=== PATIENT | female | born 1950 | race Caucasian/White ===

== ENCOUNTER 2017-02-02 17:32 | Emergency (ER) | payer BC, OTHER ==
[~2017-02-02] VITALS: Ht 167.6 cm; Wt 95.6 kg
[~2017-02-02 17:32] MED LIST: ACET-1311 PO; BUSP30TA2 PO; FLUO40CA8 PO; KRIL1CAP7 PO; LINA72CA PO; LISI-461 PO; NAPR1TAB9 PO; SIMV20TA2 PO; TOPI25TA10 PO; ZNTT/150 PO
[2017-02-02 17:42] VITALS: TEMP 37.2; Ht 167.6 cm; Wt 95.6 kg
[2017-02-02] MEDS ORDERED: SODIUM CHLORIDE 0.9% 500ML 500 ML IV STA (19:05)
[2017-02-02] MEDS ORDERED: ONDANSETRON INJ 2 MG/ML 2 ML VIAL IV STA (19:05)
[2017-02-02] MEDS ORDERED: OPTIRAY 320 IV PRN (19:15)
[2017-02-02 19:34] LABS: BASO % 0.2 %; BASO ABS # 0.02 K/uL (0-0.2); COMPLETE YES; EOS % 0.6 %; HEMATOCRIT 40.1 % (37-47); IG% 0.2 %; LYMPH % 18.5 %; LYMPH ABS # 1.98 K/uL (1.2-3.4); MEAN CELL VOLUME 89.1 fL (80-100); MEAN CORPUSCULAR HGB CONC 33.7 g/dl (32-36); MEAN PLATELET VOLUME 9.6 fL (7.4-10.4); MONO % 10.8 %; NEUT % 69.7 %; PLATELET COUNT 257 K/uL (130-400); WHITE BLOOD COUNT 10.69 K/uL (4.8-10.8)
[2017-02-02 19:39] LABS: MANUAL MICROSCOPIC REQUIRED? NO; REVIEW REQ? NO; URINE APPEARANCE CLEAR (CLEAR); URINE BILIRUBIN NEG (NEG); URINE COLOR DK YELLOW; URINE NITRITE NEG (NEG); URINE PH 5.5 (4.5-7.5); URINE SPECIFIC GRAVITY 1.024 (1.000-1.030); UROBILINOGEN NEG (NEG)
[2017-02-02 19:57] LABS: BUN/CREATININE RATIO 14.4 (10-20); CALCIUM 8.8 mg/dl (8.5-10.1); CREATININE 1.1 mg/dl (0.60-1.20); POTASSIUM 3.4 mmol/L (3.5-5.1)
--- NOTE | 2017-02-02 21:58 | DIAGNOSTIC IMAGING REPORT ---
ABD/PELVIS IV AND ORAL CONT CT DOSE: 781.71 mGy.cm HISTORY: Lower abdominal pain eval for diver tic TECHNIQUE: Multiaxial CT images of the abdomen and pelvis were performed following the use of intravenous and oral contrast. A dose lowering technique was utilized adhering to the principles of ALARA. COMPARISON STUDY: None. FINDINGS: Mild bibasilar dependent atelectasis. Small hiatal hernia. Liver spleen and pancreas are unremarkable. Gallbladder slightly contracted. Bowel pattern is nonobstructive. There are findings of wall thickening of the proximal to mid sigmoid colon with moderate pericolonic infiltrative change. This appearance consistent with that of acute diverticulitis. There is no evidence for abscess collection or obstruction. Small bowel pattern is unremarkable. IMPRESSION: 1. Acute proximal to mid sigmoid diverticulitis. 2. Moderate wall thickening, as well as pericolonic infiltrative change. 3. No evidence for abscess collection or obstruction. The above report was generated using voice recognition software. It may contain grammatical, syntax or spelling errors. Electronically signed by: Marky Le M.D. 02/02/2017 9:56 PM Dictated Date/Time: 02/02/2017 9:53 PM
[2017-02-02] MEDS ORDERED: CIPROFLOXACIN 500 MG TAB PO STA (23:03)
[2017-02-02] MEDS ORDERED: METRONIDAZOLE 250 MG TAB PO STA (23:03)
[2017-02-02] MEDS ORDERED: METR-163 PO (23:09)
[2017-02-02] MEDS ORDERED: CIPR-255 PO (23:09)
[2017-02-02 23:42] VITALS: BP 115/63; PULSE 68; O2SAT 98
--- NOTE | 2017-02-03 01:34 | EMERGENCY ROOM VISIT NOTE ---
History Report prepared by Maikol: Sharlene Thomas Under the Supervision of: Dr. Venkata Han M.D. First contact with patient: 18:59 Chief Complaint: ABDOMINAL PAIN Stated Complaint: LOWER ABD PAIN,IRRITABLE BOWEL,FEVER, Nursing Triage Summary: Abd pain, left sided. Lack of appetite. Took Tylenol approx one hour ago. Recent diagnosis of IBS per pt. History of Present Illness The patient is a 66 year old female who presents to the Emergency Room with complaints of persistent LLQ abdominal pain for the past 3 days. The patient has had intermittent abdominal pain for 1 year before she was diagnosed with IBS several weeks ago. She was started on Linzess. She had a colonoscopy 2 weeks ago which found diverticulosis. She also had a polyp removed and irregular cells requiring recheck in 6 months. Three days ago, she started having pain again. The pain is in her lower abdomen and worst in the LLQ. She states that it feels like her bowels are in spasm. The pain does feel like her IBS at times. She took 2 Tylenol prior to coming to the ED. She had a fever of 101 and chills. She denies any diarrhea, vomiting, or urinary symptoms. She has had a low appetite. She has been drinking less water. She has a history of arthritis and is scheduled for a knee replacement. Source of History: patient Onset: 3 days Position: abdomen (LLQ) Quality: other (spasm) Timing: other (persistent) Associated Symptoms: + fevers, + chills, No vomiting, No diarrhea, No urinary symptoms Note: Pt reports decreased appetite. Review of Systems See HPI for pertinent positives & negatives. A total of 10 systems reviewed and were otherwise negative. Past Medical & Surgical Medical Problems: (1) IBS (irritable bowel syndrome) Family History No pertinent family history stated. Social History Smoking Status: Former Smoker Marital Status: Occupation Status: retired Current/Historical Medications Scheduled Buspirone Hcl (Buspirone Hcl), 1 TAB PO BID Ciprofloxacin Hcl (Cipro), 500 MG PO BID Fluoxetine (Prozac), 60 MG PO QAM Krill Oil (Krill Oil [place]-3), 1 CAP PO QPM Linaclotide (Linzess), 1 CAP PO QAM Lisinopril (Zestril), 10 MG PO QAM Metronidazole (Flagyl), 500 MG PO TID Simvastatin (Zocor), 20 MG PO QPM Topiramate (Topamax), 25 MG PO HS Scheduled PRN Acetaminophen (Tylenol), 650 MG PO Q8 PRN for Pain Naproxen (Aleve), 440 MG PO DAILY PRN for Pain Ranitidine (Zantac), 150 MG PO BID PRN for Indigestion Allergies Coded Allergies: No Known Allergies (Unverified , 01/23/17) Physical Exam Vital Signs Date Time Temp Pulse Resp B/P (MAP) Pulse Ox O2 Delivery O2 Flow Rate FiO2 02/02/17 23:42 68 18 115/63 98 02/02/17 22:44 64 18 108/54 96 Room Air 02/02/17 21:20 68 18 139/64 94 Room Air 02/02/17 19:28 73 19 133/60 94 Room Air 02/02/17 17:42 37.2 94 18 121/69 95 Room Air Physical Exam Constitutional: Vital signs reviewed. Eyes: Pupils are equal round reactive to light. Conjunctiva are noninjected. ENT: Pharynx is clear without erythema or exudate. Mucous membranes are moist. Neck supple without meningeal signs. Respiratory: Clear to auscultation bilaterally. Breath sounds are equal bilaterally. Cardiovascular: Regular rate and rhythm. No rubs or gallops. GI: Soft, nondistended with LLQ and suprapubic tenderness to palpation. No guarding. Bowel sounds are present. Musculoskeletal: No peripheral edema. No CVA tenderness. Integumentary: No cyanosis. Neurological: The patient is awake and alert. No focal deficits. Psychiatric: Normal affect. Medical Decision & Procedures ER Provider Diagnostic Interpretation: Radiology results as stated below per my review and the radiologist's interpretation: ABD/PELVIS IV AND ORAL CONT CT DOSE: 781.71 mGy.cm HISTORY: Lower abdominal pain eval for diver tic TECHNIQUE: Multiaxial CT images of the abdomen and pelvis were performed following the use of intravenous and oral contrast. A dose lowering technique was utilized adhering to the principles of ALARA. COMPARISON STUDY: None. FINDINGS: Mild bibasilar dependent atelectasis. Small hiatal hernia. Liver spleen and pancreas are unremarkable. Gallbladder slightly contracted. Bowel pattern is nonobstructive. There are findings of wall thickening of the proximal to mid sigmoid colon with moderate pericolonic infiltrative change. This appearance consistent with that of acute diverticulitis. There is no evidence for abscess collection or obstruction. Small bowel pattern is unremarkable. IMPRESSION: 1. Acute proximal to mid sigmoid diverticulitis. 2. Moderate wall thickening, as well as pericolonic infiltrative change. 3. No evidence for abscess collection or obstruction. The above report was generated using voice recognition software. It may contain grammatical, syntax or spelling errors. Electronically signed by: Marky Le M.D. 02/02/2017 9:56 PM Dictated Date/Time: 02/02/2017 9:53 PM Laboratory Results 02/02/17 19:16 Red Blood Count 4.50, Mean Corpuscular Volume 89.1, Mean Corpuscular Hemoglobin 30.0, Mean Corpuscular Hemoglobin Concent 33.7, Mean Platelet Volume 9.6, Neutrophils (%) (Auto) 69.7, Lymphocytes (%) (Auto) 18.5, Monocytes (%) (Auto) 10.8, Eosinophils (%) (Auto) 0.6, Basophils (%) (Auto) 0.2, Neutrophils # (Auto ) 7.46, Lymphocytes # (Auto) 1.98, Monocytes # (Auto) 1.15, Eosinophils # (Auto ) 0.06, Basophils # (Auto) 0.02 02/02/17 19:16 Test 02/02/17 19:15 02/02/17 19:16 Urine Color DK YELLOW Urine Appearance CLEAR (CLEAR) Urine pH 5.5 (4.5-7.5) Urine Specific [place] 1.024 (1.000-1.030) Urine Protein TRACE (NEG) Urine Glucose (UA) NEG (NEG) Urine Ketones TRACE (NEG) Urine Occult Blood NEG (NEG) Urine Nitrite NEG (NEG) Urine Bilirubin NEG (NEG) Urine Urobilinogen NEG (NEG) Urine Leukocyte Esterase NEG (NEG) Urine WBC (Auto) 1-5 /hpf (0-5) Urine RBC (Auto) 0-4 /hpf (0-4) Urine Hyaline Casts (Auto) 1-5 /lpf (0-5) Urine Epithelial Cells (Auto) 10-20 /lpf (0-5) Urine Bacteria (Auto) NEG (NEG) White Blood Count 10.69 K/uL (4.8-10.8) Red Blood Count 4.50 M/uL (4.2-5.4) Hemoglobin 13.5 g/dL (12.0-16.0) Hematocrit 40.1 % (37-47) Mean Corpuscular Volume 89.1 fL (80-100) Mean Corpuscular Hemoglobin 30.0 pg (25-34) Mean Corpuscular Hemoglobin Concent 33.7 g/dl (32-36) Platelet Count 257 K/uL (130-400) Mean Platelet Volume 9.6 fL (7.4-10.4) Neutrophils (%) (Auto) 69.7 % Lymphocytes (%) (Auto) 18.5 % Monocytes (%) (Auto) 10.8 % Eosinophils (%) (Auto) 0.6 % Basophils (%) (Auto) 0.2 % Neutrophils # (Auto) 7.46 K/uL (1.4-6.5) Lymphocytes # (Auto) 1.98 K/uL (1.2-3.4) Monocytes # (Auto) 1.15 K/uL (0.11-0.59) Eosinophils # (Auto) 0.06 K/uL (0-0.5) Basophils # (Auto) 0.02 K/uL (0-0.2) RDW Standard Deviation 42.0 fL (36.4-46.3) RDW Coefficient of Variation 12.9 % (11.5-14.5) Immature Granulocyte % (Auto) 0.2 % Immature Granulocyte # (Auto) 0.02 K/uL (0.00-0.02) Anion Gap 9.0 mmol/L (3-11) Est Creatinine Clear Calc Drug Dose 58.6 ml/min Estimated GFR () 60.6 Estimated GFR (Non- 52.3 BUN/Creatinine Ratio 14.4 (10-20) Calcium Level 8.8 mg/dl (8.5-10.1) Total Bilirubin 0.8 mg/dl (0.2-1) Direct Bilirubin 0.2 mg/dl (0-0.2) Aspartate Amino Transf (AST/SGOT) 17 U/L (15-37) Alanine Aminotransferase (ALT/SGPT) 33 U/L (12-78) Alkaline Phosphatase 65 U/L (45-117) Total Protein 7.1 gm/dl (6.4-8.2) Albumin 3.5 gm/dl (3.4-5.0) Lipase 117 U/L (73-393) Laboratory results as reviewed by me. Medications Administered Medications (Trade) Dose Ordered Sig/Darwin Route Start Time Stop Time Status Last Admin Dose Admin Ondansetron HCl (Zofran Inj) 4 mg NOW STAT IV 02/02/17 19:05 02/02/17 19:09 DC 02/02/17 19:26 4 MG Sodium Chloride 500 ml @ 999 mls/hr Q31M STAT IV 02/02/17 19:05 02/02/17 19:35 DC 02/02/17 19:05 999 MLS/HR Metronidazole (Flagyl Tab) 500 mg NOW STAT PO 02/02/17 23:03 02/02/17 23:08 DC 02/02/17 23:03 500 MG Ciprofloxacin (Cipro Tab) 500 mg NOW STAT PO 02/02/17 23:03 02/02/17 23:08 DC 02/02/17 23:03 500 MG ED Course 1902: The patient was evaluated in room C10. A complete history and physical exam was performed. 1904: NSS 500 ml @ 999 mls/hr IV, Zofran Inj 4 mg IV. 2005: I reevaluated the patient. I discussed the test results with her. She is still drinking contrast. 2302: Ciprofloxacin 500 mg PO, Metronidazole 500 mg PO. 2303: Upon reevaluation, the patient appeared to have improvement of her symptoms. I discussed tonight's findings with her. She verbalized agreement of the treatment plan. She was discharged home. Medical Decision This is a 66-year-old female who presents with lower abdominal pain. Differential diagnosis includes diverticulitis, perforation, abscess, IBS, UTI. I did perform a limited focused review of portions of the patient's old chart on the electronic medical record. The patient has had no recent pertinent visits to this hospital. I did evaluate the patient as noted above. IV access was established. I did treat the patient with Zofran IV and normal saline IV. Urinalysis is unremarkable. I did order and review the patient's blood work as noted in the electronic medical record. I did order a CT of the abdomen and pelvis. I did review the images myself as well as the radiology report as described above. She does have diverticulitis without abscess or perforation. I did discuss the test results with the patient. She was given Cipro and Flagyl and given precautions regarding this medication. She was discharged in good condition and advised to follow up with her doctor. Medication Reconcilliation Current Medication List: was personally reviewed by me Blood Pressure Screening Patient's blood pressure: Normal blood pressure Blood pressure disposition: Did not require urgent referral Impression Primary Impression: Acute diverticulitis Scribe Attestation The scribe's documentation has been prepared under my direct and personally reviewed by me in its entirety. I confirm that the note above accurately reflects all work, treatment, procedures, and medical decision making performed by me. Departure Information Dispostion Home / Self-Care Prescriptions Metronidazole (Flagyl) 500 Mg Tab 500 MG PO TID for 10 Days, #30 TAB Prov: Venkata Han M.D. 02/02/17 Ciprofloxacin Hcl (CIPRO) 500 Mg Tab 500 MG PO BID, #20 TAB Prov: Venkata Han M.D. 02/02/17 Referrals Dalton ErnstD.OJil (PCP) Forms HOME CARE DOCUMENTATION FORM, IMPORTANT VISIT INFORMATION Patient Instructions Diverticulitis Yonny, My [facility] Additional Instructions You have been examined and treated today on an emergency basis only. This is not a substitute for, or an effort to provide, complete comprehensive medical care. It is impossible to recognize and treat all injuries or illnesses in a single emergency department visit. It is therefore important that you follow up closely with your physician. Call as soon as possible for an appointment. Return for worsening symptoms or if you develop fever, vomiting, rectal bleeding or any other concerning symptoms.
== END 2017-02-02 23:43 | disposition home or self-care (01) ==
LOC: C.EDB 17:33 → C.EDC 23:43
DX: K57.92 Diverticulitis of intestine, part unspecified, without perforation or abscess without bleeding (principal); K58.9 Irritable bowel syndrome, unspecified; Z87.891 Personal history of nicotine dependence; Z79.899 Other long term (current) drug therapy

== ENCOUNTER 2017-02-21 06:31 | Inpatient (IN) | payer BC, OTHER ==
[2017-01-23 15:00] VITALS: BMI 34.0
--- NOTE | 2017-01-23 15:39 | PAT Medication Instructions ---
Service Date Jan 23, 2017. Current Home Medication List Acetaminophen (Tylenol), 650 MG PO Q8 PRN for Pain Buspirone Hcl (Buspirone Hcl), 1 TAB PO BID Fluoxetine (Prozac), 60 MG PO QAM Krill Oil (Krill Oil [place]-3), 1 CAP PO QPM Linaclotide (Linzess), 1 CAP PO QAM Lisinopril (Zestril), 10 MG PO QAM Naproxen (Aleve), 440 MG PO DAILY PRN for Pain Ranitidine (Zantac), 150 MG PO BID PRN for Indigestion Simvastatin (Zocor), 20 MG PO QPM Topiramate (Topamax), 25 MG PO HS Medication Instructions For Your Scheduled Surgery Follow instructions per surgeon-: Naproxen (Aleve), 440 MG PO DAILY PRN for Pain - Hold the following medications 2 weeks prior to surgery: Krill Oil (Krill Oil [place]-3), 1 CAP PO QPM - Hold the following medications the morning of surgery: Linaclotide (Linzess), 1 CAP PO QAM Lisinopril (Zestril), 10 MG PO QAM - Take the following medications the morning of surgery with a sip of water: Fluoxetine (Prozac), 60 MG PO QAM Buspirone Hcl (Buspirone Hcl), 1 TAB PO BID Ranitidine (Zantac), 150 MG PO BID PRN for Indigestion (if needed) Acetaminophen (Tylenol), 650 MG PO Q8 PRN for Pain (if needed up to 4 hours prior to surgery) - Take the following medications as scheduled the night before surgery: Topiramate (Topamax), 25 MG PO HS Simvastatin (Zocor), 20 MG PO QPM Buspirone Hcl (Buspirone Hcl), 1 TAB PO BID Ranitidine (Zantac), 150 MG PO BID PRN for Indigestion Acetaminophen (Tylenol), 650 MG PO Q8 PRN for Pain If you have any questions please call us at [phone] or [phone] or [phone]
--- NOTE | 2017-01-23 16:22 | DIAGNOSTIC IMAGING REPORT ---
CHEST 2 VIEWS ROUTINE CLINICAL HISTORY: Preoperative evaluation. COMPARISON STUDY: No previous studies for comparison. FINDINGS: Lung volumes are normal. No pneumothorax or pleural effusion is present. Pulmonary vascularity is normal. Cardiomediastinal silhouette is normal. Lungs are clear. IMPRESSION: No acute cardiopulmonary findings. Electronically signed by: Jona Gabriel M.D. 01/23/2017 4:21 PM Dictated Date/Time: 01/23/2017 4:20 PM
[2017-01-23 16:27] LABS: BASO % 0.8 %; BASO ABS # 0.04 K/uL (0-0.2); COMPLETE YES; EOS % 2.9 %; HEMATOCRIT 40.8 % (37-47); LYMPH % 30.2 %; LYMPH ABS # 1.57 K/uL (1.2-3.4); MEAN CELL VOLUME 87.9 fL (80-100); MEAN CORPUSCULAR HGB CONC 34.1 g/dl (32-36); MEAN PLATELET VOLUME 9.8 fL (7.4-10.4); MONO % 7.9 %; NEUT % 58.2 %; PLATELET COUNT 256 K/uL (130-400); RED BLOOD COUNT 4.64 M/uL (4.2-5.4)
[2017-01-23 16:36] LABS: URINE APPEARANCE CLEAR (CLEAR); URINE BILIRUBIN NEG (NEG); URINE COLOR YELLOW; URINE NITRITE NEG (NEG); URINE PH 6.5 (4.5-7.5); URINE SPECIFIC GRAVITY 1.022 (1.000-1.030); UROBILINOGEN NEG (NEG); ZZUR CULT IF INDIC CLEAN CATCH NO
[2017-01-23 16:40] LABS: MANUAL MICROSCOPIC REQUIRED? NO; REVIEW REQ? NO
[2017-01-23 16:42] LABS: PROTHROMBIN TIME (PATIENT) 10.3 SECONDS (9.0-12.0)
[2017-01-23 16:47] LABS: CALCIUM 8.9 mg/dl (8.5-10.1); CREATININE 1.2 mg/dl (0.60-1.20); POTASSIUM 4.2 mmol/L (3.5-5.1)
[2017-01-24 07:38] LABS: ESTIMATED AVERAGE GLUCOSE 108 mg/dl; HA1C FLAG Normal (Normal)
--- NOTE | 2017-02-20 17:10 | HISTORY & PHYSICAL EXAMINATION ---
DATE OF ADMISSION: 02/21/2017 ADMISSION HISTORY AND PHYSICAL CHIEF COMPLAINT: Chronic left knee pain. HISTORY OF PRESENT ILLNESS: This is a 66-year-old female patient of Dr. Bowen'raphael complaining of chronic left knee pain, longstanding, now progressively getting worse. The patient has been diagnosed with end-stage osteoarthritis, per clinical and great radiographic exams. The patient has failed conservative treatment including anti-inflammatories, intraarticular injections. The patient has increased pain with weightbearing activities and her pain does interfere with her activities of daily living. PAST MEDICAL HISTORY: Hypertension, hypercholesterolemia, sleep apnea, anxiety, osteoarthritis, spine problems, acid reflux, obesity, dental issues. SOCIAL HISTORY: Nonsmoker, occasional drinker. PAST SURGICAL HISTORY: Dental, D&C, laminectomy. MEDICATIONS: Include Linzess 72 mcg in the morning, Prozac 60 mg daily, BuSpar 30 mg daily, lisinopril 10 mg daily, again BuSpar 30 mg in the evening, topiramate 25 mg in the evening, simvastatin 20 mg in the evening, Krill oil 350 mg in the evening; Aleve, Tylenol and ranitidine as needed. ALLERGIES: No known drug allergies. PHYSICAL EXAMINATION: GENERAL: Well-developed, well-nourished 66-year-old female in no acute distress. She is alert and oriented x3 and pleasant. HEENT: Normocephalic, atraumatic. Extraocular motions are intact. Pupils are equal and reactive to light. HEART: Regular rate and rhythm, no murmurs appreciated. LUNGS: Clear. ABDOMEN: Soft, nontender, bowel sounds are present. EXTREMITIES: Left knee reveals a limited range of motion of 0-125 degrees with a varus deformity. She has 4/5 strength. She has crepitation with passive range of motion and medial joint line tenderness. DIAGNOSES: Left knee end-stage osteoarthritis with a history of hypertension, hypercholesterolemia, sleep apnea, anxiety, osteoarthritis, spine problems, acid reflux, obesity, dental issues. PLAN: The patient was advised of her diagnosis. Indications, risks, benefits, and postop course have all been reviewed. The patient wishes to proceed with a left total knee arthroplasty. Necessary consent forms, preoperative testing and clearances will be obtained.
[~2017-02-21] VITALS: Ht 167.6 cm; Wt 96.1 kg
[2017-02-21] VITALS (8 sets, daily range): BP systolic 94–148; BP diastolic 44–82; PULSE 58–67; TEMP 36.6–37.3; O2SAT 93–98; Ht 167.6 cm; Wt 96.1 kg
[~2017-02-21 06:31] MED LIST changes: +ACETAMINOPHEN 500 MG TAB PO SCH; +CEFAZOLIN 2000 MG/60 ML D5W 60 ML IV SCH; +CIPR-255 PO; +CeleBREX 200 MG CAP PO SCH; +DEXAMETHASONE 4 MG TAB PO SCH; +FAMOTIDINE 20 MG TAB PO SCH; +GABAPENTIN 300 MG CAP PO SCH; +LACTATED RINGER'S 1000ML 1,000 ML IV SCH; +LACTATED RINGER'S 1000ML 500 ML IV ONE; +LACTATED RINGER'S 1000ML IV SCH; +METOCLOPRAMIDE HCL 10 MG TAB PO SCH; +ROPIVACAINE 5MG/ML 30 ML 150 MG, BUPIVACAINE/EPINEPHR 0.5% MPF 30 ML, KETOROLAC TROMETH... INFIL SCH
[2017-02-21] MEDS ORDERED: BUPIVACAINE 0.5 % 5 MG/1 ML PF 10ML VIAL ONE (06:39)
[2017-02-21] MEDS ORDERED: BUPIVACAINE 0.25% 30 ML VIAL ONE (06:39)
[2017-02-21] MEDS ORDERED: PROPOFOL IV EMULSION 10 MG/ML 20 ML VIAL IV ONE ×2 (06:50→11:22)
[2017-02-21] MEDS ORDERED: ONDANSETRON INJ 2 MG/ML 2 ML VIAL ONE (06:50)
[2017-02-21] MEDS ORDERED: MIDAZOLAM HCL 1 MG/ML 2ML VIAL ONE ×2 (06:50→10:23)
[2017-02-21] MEDS ORDERED: LIDOCAINE HCL 2% 2 ML VIAL (20MG/ML) ONE (06:50)
[2017-02-21] MEDS ORDERED: FENTANYL CITRATE INJ 50 MCG/1 ML 2 ML VIAL ONE (06:50)
[2017-02-21] MEDS ORDERED: BACITRACIN 50000 UNIT VIAL ONE (07:01)
[2017-02-21] MEDS ORDERED: ORTHO JOINT ANESTHETIC ONE (07:01)
[2017-02-21] MEDS ORDERED: POVIDONE-IODINE OP SOLN 30 ML BTL ONE (07:01)
--- NOTE | 2017-02-21 07:24 | History & Physical Bridge Note ---
H&P Re-Evaluation Bridge Note: I have examined the patient, reviewed the History & Physical and in the interval since the performance of the History & Physical I have noted the following changes of clinical significance: No changes noted
[2017-02-21] MEDS ORDERED: ATROPINE SULFATE 0.1 MG/ML 5ML SYR IV PRN (07:45)
[2017-02-21] MEDS ORDERED: EpHEDrine SULFATE INJ 50 MG/ML AMP IV PRN (07:45)
[2017-02-21] MEDS ORDERED: ONDANSETRON INJ 2 MG/ML 2 ML VIAL IV PRN (07:45)
[2017-02-21] MEDS ORDERED: FENTANYL CITRATE INJ 50 MCG/1 ML 2 ML VIAL IV PRN (07:45)
[2017-02-21] MEDS: TRANEXAMIC ACID INJ 1,000 MG in SODIUM CHLORIDE 0.9% 100ML 100 ML IV SCH ×2 (09:25→14:12)
--- NOTE | 2017-02-21 11:40 | [facility] Post Operative Brief Note ---
Immediate Operative Summary Operative Date Feb 21, 2017. Pre-Operative Diagnosis Left knee end-stage osteoarthritis Post-Operative Diagnosis Left knee end-stage osteoarthritis Procedure(s) Performed Left Total Knee Arthroplasty, Cemented Surgeon Dr. Bowen Candy Butcher Surgeon(s) Brennan Espinoza PA-C Estimated Blood Loss 5 mL Findings tricompartmental djd oa varus grade 4 medial and lateral femoral condyle Specimens A: Left knee bone and tissue Drains 2 hemovac Anesthesia spinal sedation orthomix adductor block Complication(s) None Disposition Recovery Room / PACU
[2017-02-21] MEDS ORDERED: MoRPHine SULFATE 4 MG/ML 1 ML CARP\\VIAL IV PRN (12:15)
[2017-02-21] MEDS ORDERED: BISACODYL 10 MG SUPP PR PRN (12:15)
[2017-02-21] MEDS ORDERED: ALUMINUM/MAGNESIUM/SIMETH (MAALOX MAX) 30 ML UDC PO PRN (12:15)
[2017-02-21] MEDS ORDERED: MoRPHine SULFATE 2 MG/ML CARP IV PRN (12:15)
[2017-02-21] MEDS ORDERED: MAGNESIUM HYDROXIDE SUSP 30 ML UDC PO PRN (12:15)
--- NOTE | 2017-02-21 12:38 | OPERATIVE REPORT ---
DATE OF OPERATION: 02/21/2017 INDICATION FOR PROCEDURE: The patient is a 66-year-old female who presents with chronic bilateral knee pain, left greater than right. Radiographs demonstrate she is [id number] in the medial compartment of both of her knees with varus knees. PREOPERATIVE DIAGNOSIS: End-stage osteoarthritis, left knee. POSTOPERATIVE DIAGNOSIS: Same. PROCEDURE: Left total knee arthroplasty. SURGEON: Dr. Bowen. PUBLIC WORKS DIRECTOR: Brennan Espinoza PA-C. ANESTHESIA: Spinal, sedation, adductor nerve block and Orthomix. OPERATIVE PROCEDURE: The patient taken to the operating room, anesthetized under anesthesia as dictated. She was placed supine on the operating room table. Pneumatic tourniquet was placed about her left upper thigh. Left lower extremity was prepped and draped in sterile fashion. The patient had good range of motion and a varus knee. After the left lower extremity was sterilely prepped and draped with ChloraPrep leg was elevated, exsanguinated with Esmarch bandage. Pneumatic tourniquet was raised to 300 mmHg but later we raised it to 325 mmHg. The anterior incision was made across the knee in a longitudinal fashion. Skin was incised sharply. Subcutaneous flaps were elevated. An incision was made through medial retinaculum carried up into the mid third of the quadriceps tendon and down into the medial tibial tubercle area. Intraarticular findings demonstrate she had tricompartmental DJD with bone on bone in the medial compartment and grade 4 lesion lateral femoral condyle. I used the [employer] Journey 2.0, total knee arthroplasty system using [employer] MRI templating with custom cutting blocks with the femur sized for a 5 and the tibia for a 3. To expose the knee, I excised the infrapatellar fat pad, released lateral synovial bands, excised the fat pad over the anterior femur for placement of the component in that area. I did subperiosteal peel lateral release. The cruciate ligaments were resected. The meniscal remnants were resected. The patient had balanced knee, so we did not do any particular releases at all. The femur was exposed and the custom femoral cutting block was pinned in position and distal femoral cut was made. Then the 5-in-1 cutting block was placed with a size 5 femur and the anterior, posterior and chamfer cuts were made. Then the tibia was subluxed and the custom tibial cutting block was pinned in position and the proximal tibial cut was made. Then we used the laminar enrollment consultant to assess ligamentous balance and ligaments were balanced in extension and flexion with balanced gaps. The subperiosteal peel was made around the lateral patella to expose that. Then the patella width was measured and width was reproduced using freehand cut technique and she had a very oval shaped patella so we chose to use an oval patellar replacement. This sized for a 35. We drilled holes for that implant and then attention was taken to the tibia which was subluxed and the tibial trial was externally rotated in line with the tibial tubercle. The size 3 was the appropriate fit. This was pinned in position and punch for the stem was used. Then, the 5 femoral trial was inserted, centered and the notch cutting device was used and the collet was placed and then a 12 trial posterior stabilized insert high flex gave the best balance of ligaments through full range of motion. The patella trial was placed and tracked centrally. The trials were all removed. The Orthomix was injected per protocol. The knee was copiously irrigated with pulsatile lavage antibiotic solution with bacitracin. The final components were cemented with Simplex G cement. Final components were the 5 Oxinium [employer]hew Journey 2.0 left femur, the 3 primary tibial baseplate, the 12 mm high flex posterior stabilized poly insert, and the 35 mm oval patella. While cement cured used Betadine soak per protocol. We irrigated out the knee again with antibiotic solution and bacitracin. The quadriceps tendon and medial retinaculum were closed with interrupted [id number] #1 Vicryl sutures over a Hemovac drain which was brought out laterally. Subcutaneous tissues were closed with interrupted 2-0 Vicryl, skin closed with carlos. Sterile dressing was applied and the patient tolerated the procedure well. Brenann Espinoza PA-C was my executive staff assistant and he functioned as executive staff assistant through the entire procedure. He assisted in patient positioning, prepping, draping, assisted in soft tissue retraction, instrument management during the procedure and performed the fascial, subcutaneous and skin closure and will participate in postoperative care of the patient. I attest to the content of the Intraoperative Record and any orders documented therein. Any exception s are noted below.
--- NOTE | 2017-02-21 13:04 | DIAGNOSTIC IMAGING REPORT ---
LEFT KNEE 2 VIEWS History: Left total knee arthroplasty. Degenerative arthritis. Postop. FINDINGS: The patient is status post a left total knee arthroplasty. The hardware is intact. No fracture or dislocation. Skin carlos and surgical drains are in place. IMPRESSION: Left total knee arthroplasty. No evidence for hardware complication. Electronically signed by: Collin Brunner M.D. 02/21/2017 1:03 PM Dictated Date/Time: 02/21/2017 1:02 PM
--- NOTE | 2017-02-21 13:31 | Anesthesiology Progress Note ---
Anesthesia Post Op Note Date & Time Feb 21, 2017 at 13:31 Vital Signs Pain Intensity: 0 Vital Signs Past 12 Hours Date Time Temp Pulse Resp B/P (MAP) Pulse Ox O2 Delivery O2 Flow Rate FiO2 02/21/17 13:12 70 13 02/21/17 13:12 69 13 93 02/21/17 13:11 112/56 02/21/17 13:07 69 15 96 02/21/17 13:07 69 15 02/21/17 13:06 100/46 02/21/17 13:02 37 73 20 112/60 96 Nasal Cannula 2 02/21/17 13:02 78 13 95 02/21/17 13:02 76 13 02/21/17 13:01 112/60 02/21/17 12:57 69 15 02/21/17 12:57 69 15 95 02/21/17 12:56 102/58 02/21/17 12:52 68 14 02/21/17 12:52 68 14 94 02/21/17 12:51 107/57 02/21/17 12:47 71 13 93 02/21/17 12:47 71 13 02/21/17 12:46 101/51 02/21/17 12:42 71 15 112/49 97 02/21/17 12:42 71 15 02/21/17 12:36 109/66 02/21/17 12:32 71 13 93 02/21/17 12:32 71 13 02/21/17 12:31 107/58 02/21/17 12:27 70 18 95 02/21/17 12:27 70 18 02/21/17 12:26 115/56 02/21/17 12:22 75 14 93 02/21/17 12:22 75 14 02/21/17 12:21 114/58 02/21/17 12:17 71 17 02/21/17 12:17 72 17 93 02/21/17 12:16 96/55 02/21/17 12:12 76 13 02/21/17 12:12 76 13 97 02/21/17 12:11 115/61 02/21/17 12:08 108/53 02/21/17 12:07 70 15 98 02/21/17 12:07 72 15 02/21/17 12:02 74 16 02/21/17 12:02 74 16 112/51 98 02/21/17 11:59 104/52 02/21/17 11:57 36.5 80 18 104/52 97 Mask 10 02/21/17 06:49 36.6 63 18 137/67 98 Room Air Notes Mental Status: alert / awake / arousable, participated in evaluation Pt Amnestic to Procedure: Yes Nausea / Vomiting: adequately controlled Pain: adequately controlled Airway Patency, RR, SpO2: stable & adequate BP & HR: stable & adequate Hydration State: stable & adequate Neuraxial Anesthesia: was administered, sensory block is resolving Anesthetic Complications: no major complications apparent
[2017-02-21] MEDS: ACETAMINOPHEN 500 MG TAB PO SCH ×2 (15:48→21:46)
[2017-02-21] MEDS ORDERED: LINZESS~ORDER AWAITING ACTION SCH (16:00)
[2017-02-21] MEDS ORDERED: NURSING VERBAL MED ORDER ONE (17:30)
--- NOTE | 2017-02-21 18:07 | Medical Consult ---
Consultation Date of Consultation: Feb 21, 2017. Attending Physician: Bright Bowen M.D. Reason for Consultation: Medical Management History of Present Illness Ms. Friedman is a 66 y/o female with PMHx of HTN, HLD, GERD, Anxiety, and OA who is S/P L TKA on 02/21. Patient reporting good pain control and feels well. She reports good control of her HTN with Lisinopril. She denies significant H/O cardiac disease including [place] or CHF. She denies H/O DVT/PE. She is hemodynamically stable and verbalizes no issues. Past Medical/Surgical History 1. HTN 2. HLD 3. GERD 4. Anxiety 5. OA Family History Hypertension Social History Smoking Status: Former Smoker Smokeless Tobacco Use: No Alcohol Use: socially Drug Use: none Marital Status: Occupation Status: retired Allergies Coded Allergies: No Known Allergies (Verified , 02/21/17) Current Inpatient Medications Current Inpatient Medications Medications (Trade) Dose Ordered Sig/Darwin Route Start Time Stop Time Status Last Admin Dose Admin Cefazolin Sodium 60 ml @ 100 mls/hr PREOP IV 02/21/17 06:00 02/21/17 18:00 02/21/17 10:02 100 MLS/HR Acetaminophen (Tylenol Tab) 1,000 mg PREOP PO 02/21/17 06:00 02/21/17 18:00 02/21/17 07:20 1,000 MG Celecoxib (CeleBREX CAP) 200 mg PREOP PO 02/21/17 06:00 02/21/17 18:00 02/21/17 07:20 200 MG Dexamethasone (Decadron Tab) 8 mg PREOP PO 02/21/17 06:00 02/21/17 18:00 02/21/17 07:19 8 MG Famotidine (Pepcid Tab) 20 mg PREOP PO 02/21/17 06:00 02/21/17 18:00 02/21/17 07:21 20 MG Gabapentin (Neurontin Cap) 300 mg PREOP PO 02/21/17 06:00 02/21/17 18:00 02/21/17 07:20 300 MG Metoclopramide HCl (Reglan Tab) 10 mg PREOP PO 02/21/17 06:00 02/21/17 18:00 02/21/17 07:20 10 MG Tranexamic Acid 1000 mg/Sodium Chloride 110 ml @ 660 mls/hr TODAY@06,0630 IV 02/21/17 06:00 02/21/17 18:00 02/21/17 09:25 660 MLS/HR Lactated Ringer's 1,000 ml @ 15 mls/hr Q24H IV 02/21/17 06:00 02/22/17 05:59 02/21/17 07:19 15 MLS/HR Fluoxetine HCl (Prozac Cap) 60 mg QAM PO 02/22/17 09:00 03/24/17 08:59 Lisinopril (Zestril Tab) 10 mg QAM PO 02/22/17 09:00 03/24/17 08:59 Simvastatin (Zocor Tab) 20 mg QPM PO 02/21/17 21:00 03/23/17 20:59 Topiramate (Topamax Tab) 25 mg HS PO 02/21/17 21:00 03/23/17 20:59 Buspirone HCl (BusPAR TAB) 30 mg BID PO 02/21/17 21:00 03/23/17 20:59 Miscellaneous Information (Order Awaiting Action) 1 ea QS N/A 02/21/17 16:00 03/23/17 15:59 Morphine Sulfate (MoRPHine SULFATE INJ) 2 mg Q4HWA PRN IV 02/21/17 12:15 03/07/17 12:14 Morphine Sulfate (MoRPHine SULFATE INJ) 4 mg Q4HWA PRN IV 02/21/17 12:15 03/07/17 12:14 Cefazolin Sodium 2000 mg/Dextrose 60 ml @ 100 mls/hr Q8H IV 02/21/17 18:00 02/22/17 02:35 Oxycodone HCl (Roxicodone Immediate Rel Tab) 1 TABLET FOR PAIN RATING... Q4H PRN PO 02/21/17 12:15 03/07/17 12:14 Acetaminophen (Tylenol Tab) 1,000 mg Q8@0600,1400,2200 PO 02/21/17 15:00 03/23/17 14:59 02/21/17 15:48 1,000 MG Magnesium Hydroxide (Milk Of Magnesia Susp) 30 ml Q6H PRN PO 02/21/17 12:15 03/23/17 12:14 Bisacodyl (Dulcolax Supp) 10 mg DAILY PRN OK 02/21/17 12:15 03/23/17 12:14 Senna (Senokot Tab) 17.2 mg HS PO 02/21/17 21:00 03/23/17 20:59 Docusate Sodium (coLACE CAP) 100 mg BID PO 02/21/17 21:00 03/23/17 20:59 Al Hydrox/Mg Hydrox/Simethicone (Maalox Max Susp) 15 ml Q4H PRN PO 02/21/17 12:15 03/23/17 12:14 Multivitamins (Multivitamin Tab) 1 tab QAM PO 02/22/17 09:00 03/24/17 08:59 Ferrous Gluconate (Ferrous Gluconate Tab) 324 mg TIDM PO 02/21/17 17:45 03/23/17 17:59 Pantoprazole Sodium (Protonix Tab) 40 mg QAM PO 02/22/17 09:00 03/24/17 08:59 Tramadol HCl (Ultram Tab) 1 tablet for pain rating... Q4H PRN PO 02/21/17 12:15 03/23/17 12:14 Aspirin (Ecotrin Tab) 81 mg BID PO 02/21/17 21:00 03/23/17 20:59 Potassium Chloride/Dextrose/ Sod Cl 1,000 ml @ 100 mls/hr Q10H IV 02/21/17 17:45 03/23/17 17:44 Review of Systems Constitutional: No fever, No chills ENT: No nasal symptoms, No sore throat, No trouble swallowing Respiratory: No cough, No shortness of breath Cardiovascular: No chest pain, No palpitations Abdomen: No pain, No nausea, No vomiting Musculoskeletal: No swelling, No calf pain Genitourinary - Female: No dysuria Hematologic / Lymphatic: No abnormal bleeding/bruising, No clotting problems Integumentary: No rash Physical Exam Date Time Temp Pulse Resp B/P (MAP) Pulse Ox O2 Delivery O2 Flow Rate FiO2 02/21/17 16:36 36.9 61 16 126/71 (89) 96 Nasal Cannula 2.0 02/21/17 15:30 37.1 62 16 124/74 (91) 97 Nasal Cannula 2.0 02/21/17 14:32 64 16 108/64 (79) 97 Nasal Cannula 2.0 02/21/17 14:00 61 16 108/66 (80) 96 Nasal Cannula 2.0 02/21/17 13:30 37.3 64 20 94/44 (61) 98 Nasal Cannula 2.0 02/21/17 13:30 Nasal Cannula 2.0 02/21/17 13:30 Nasal Cannula 2.0 02/21/17 13:12 70 13 02/21/17 13:12 69 13 93 02/21/17 13:11 112/56 02/21/17 13:07 69 15 96 02/21/17 13:07 69 15 02/21/17 13:06 100/46 02/21/17 13:02 37 73 20 112/60 96 Nasal Cannula 2 02/21/17 13:02 78 13 95 02/21/17 13:02 76 13 02/21/17 13:01 112/60 02/21/17 12:57 69 15 02/21/17 12:57 69 15 95 02/21/17 12:56 102/58 02/21/17 12:52 68 14 02/21/17 12:52 68 14 94 02/21/17 12:51 107/57 02/21/17 12:47 71 13 93 02/21/17 12:47 71 13 02/21/17 12:46 101/51 02/21/17 12:42 71 15 112/49 97 02/21/17 12:42 71 15 02/21/17 12:36 109/66 02/21/17 12:32 71 13 93 02/21/17 12:32 71 13 02/21/17 12:31 107/58 02/21/17 12:27 70 18 95 02/21/17 12:27 70 18 02/21/17 12:26 115/56 02/21/17 12:22 75 14 93 02/21/17 12:22 75 14 02/21/17 12:21 114/58 02/21/17 12:17 71 17 02/21/17 12:17 72 17 93 02/21/17 12:16 96/55 02/21/17 12:12 76 13 02/21/17 12:12 76 13 97 02/21/17 12:11 115/61 02/21/17 12:08 108/53 02/21/17 12:07 70 15 98 02/21/17 12:07 72 15 02/21/17 12:02 74 16 02/21/17 12:02 74 16 112/51 98 02/21/17 11:59 104/52 02/21/17 11:57 36.5 80 18 104/52 97 Mask 10 02/21/17 06:49 36.6 63 18 137/67 98 Room Air General Appearance: WD/WN, no apparent distress Head: normocephalic, atraumatic Eyes: sclerae normal ENT: hearing grossly normal Neck: supple, no JVD, trachea midline Respiratory/Chest: lungs clear, normal breath sounds, no respiratory distress, no accessory muscle use Cardiovascular: regular rate, rhythm, no gallop, no murmur Abdomen/GI: normal bowel sounds, non tender, soft Extremities/Musculoskelatal: normal capillary refill, no pedal edema, + pertinent finding (L knee with blood in drain; bandage C/D/I) Neurologic/Psych: alert, oriented x 3 Skin: normal color, warm/dry Assessment & Plan Ms. Friedman is a 66 y/o female with PMHx of HTN, HLD, GERD, Anxiety, and OA who is S/P L TKA on 02/21. S/P L TKA on 02/21: - Pain management, IVF, PT/OT, DVT prophylaxis per primary - DVT prophylaxis - ASA 81 mg BID HTN: - Hold Lisinopril 10 mg daily until AM labs evaluated and cover with Hydralazine PRN HLD: - Simvastatin 20 mg daily Anxiety: - Buspar 30 mg BID .Attending Addendum: I have physically seen this patient, have directed the physician assistants medical activities, and agree with the H&P as noted above with the following exceptions as noted. Assessment and Plan: Status post left total knee arthroplasty on 02/21 Seen postoperatively is medically stable. Hypertension-- Hold lisinopril. Resume in a.m. if BMP acceptable Hydralazine 10 mg IV every 4 hours when necessary systolic blood pressure greater than 160. Hyperlipidemia-- Continue simvastatin 20 mg by mouth daily. Anxiety-- Continue BuSpar 30 mg by mouth twice a day.
[2017-02-21] MEDS ORDERED: HydrALAZINE HCL 20 MG/ML VIAL IV. PRN (18:15)
[2017-02-21] MEDS: D5W AND 1/2NSS + 20MEQ KCL 1,000 ML IV SCH (18:26)
[2017-02-21] MEDS: CEFAZOLIN IV 2,000 MG in DEXTROSE 5% 50ML 50 ML IV SCH (18:27)
[2017-02-21] MEDS: FERROUS GLUCONATE 324 MG TAB PO SCH (18:27)
[2017-02-21] MEDS: TRAMADOL HCL 50 MG TAB PO PRN (18:31)
[2017-02-21] MEDS: SENNA 8.6 MG TAB PO SCH (21:00)
[2017-02-21] MEDS: BusPIRone 15 MG TAB PO SCH (21:45)
[2017-02-21] MEDS: SIMVASTATIN 20 MG TAB PO SCH (21:45)
[2017-02-21] MEDS: TOPIRAMATE 25 MG TAB PO SCH (21:45)
[2017-02-21] MEDS: DOCUSATE SODIUM 100 MG CAP PO SCH (21:45)
[2017-02-21] MEDS: ASPIRIN 81 MG ECTAB PO SCH (21:45)
[2017-02-21] MEDS: OXYCODONE HCL IR 5 MG TAB (IMMEDIATE RELEASE) PO PRN (23:35)
[2017-02-22] MEDS: OXYCODONE HCL IR 5 MG TAB (IMMEDIATE RELEASE) PO PRN ×3 (00:22→21:27)
[2017-02-22] MEDS: CEFAZOLIN IV 2,000 MG in DEXTROSE 5% 50ML 50 ML IV SCH (01:45)
[2017-02-22 03:08] VITALS: BP 132/79; PULSE 53; PULSE 78; TEMP 36.8; O2SAT 95
[2017-02-22] MEDS: D5W AND 1/2NSS + 20MEQ KCL 1,000 ML IV SCH (03:25)
[2017-02-22] MEDS: ACETAMINOPHEN 500 MG TAB PO SCH ×3 (05:31→21:29)
[2017-02-22 07:15] VITALS: BP 140/78; PULSE 58; TEMP 36.7; O2SAT 96
[2017-02-22] MEDS: LINACLOTIDE 72 MCG PO SCH (07:15)
--- NOTE | 2017-02-22 08:05 | Orthopedic Progress Note ---
Orthopedic Progress Note Date of Service Feb 22, 2017. Subjective Post OP Day: 1 Reports: feeling well, pain controlled w PO medications, Denies: complaints, chest pain, SOB, nausea / vomiting, light headedness, calf pain Additional Notes: AM labs pending Objective calves soft nontender, N/V intact, capillary refill less than 2 sec., dressing C /D/I, A&O x3, toes mobile Date Time Temp Pulse Resp B/P (MAP) Pulse Ox O2 Delivery O2 Flow Rate FiO2 02/22/17 03:08 36.8 53 17 132/79 (96) 95 Room Air 02/21/17 23:30 Room Air 02/21/17 22:47 36.8 58 16 148/82 (104) 93 Room Air 02/21/17 19:46 36.8 67 17 129/75 (93) 94 Room Air 02/21/17 16:36 36.9 61 16 126/71 (89) 96 Nasal Cannula 2.0 02/21/17 15:45 Nasal Cannula 2.0 02/21/17 15:30 37.1 62 16 124/74 (91) 97 Nasal Cannula 2.0 02/21/17 14:32 64 16 108/64 (79) 97 Nasal Cannula 2.0 02/21/17 14:00 61 16 108/66 (80) 96 Nasal Cannula 2.0 02/21/17 13:30 37.3 64 20 94/44 (61) 98 Nasal Cannula 2.0 02/21/17 13:30 Nasal Cannula 2.0 02/21/17 13:30 Nasal Cannula 2.0 02/21/17 13:12 70 13 02/21/17 13:12 69 13 93 02/21/17 13:11 112/56 02/21/17 13:07 69 15 96 02/21/17 13:07 69 15 02/21/17 13:06 100/46 02/21/17 13:02 37 73 20 112/60 96 Nasal Cannula 2 02/21/17 13:02 78 13 95 02/21/17 13:02 76 13 02/21/17 13:01 112/60 02/21/17 12:57 69 15 02/21/17 12:57 69 15 95 02/21/17 12:56 102/58 02/21/17 12:52 68 14 02/21/17 12:52 68 14 94 02/21/17 12:51 107/57 02/21/17 12:47 71 13 93 02/21/17 12:47 71 13 02/21/17 12:46 101/51 02/21/17 12:42 71 15 112/49 97 02/21/17 12:42 71 15 02/21/17 12:36 109/66 02/21/17 12:32 71 13 93 02/21/17 12:32 71 13 02/21/17 12:31 107/58 02/21/17 12:27 70 18 95 02/21/17 12:27 70 18 02/21/17 12:26 115/56 02/21/17 12:22 75 14 93 02/21/17 12:22 75 14 02/21/17 12:21 114/58 02/21/17 12:17 71 17 02/21/17 12:17 72 17 93 02/21/17 12:16 96/55 02/21/17 12:12 76 13 02/21/17 12:12 76 13 97 02/21/17 12:11 115/61 02/21/17 12:08 108/53 02/21/17 12:07 70 15 98 02/21/17 12:07 72 15 02/21/17 12:02 74 16 02/21/17 12:02 74 16 112/51 98 02/21/17 11:59 104/52 02/21/17 11:57 36.5 80 18 104/52 97 Mask 10 Laboratory Results 24 Hours: Test 02/22/17 07:58 Assessment & Plan Assessment: POD #1, Left TKA Plan: PT/ OT DVT proph- ASA D/C planning, Home w OPPT As per medicine. Inhouse Planning Pain Management: Ultram, Morphine, PO Tylenol, Oxy IR DVT Prophylaxis: TEDs, SCDs, ASA Discharge Planning Discharge Planning: home with oppt DVT Prophylaxis: TEDs, ASA Therapy: Physical Therapy, Occupational Therapy
[2017-02-22 08:21] LABS: HEMATOCRIT 40.5 % (37-47); MEAN CELL VOLUME 88.8 fL (80-100); MEAN CORPUSCULAR HEMOGLOBIN 28.7 pg (25-34); MEAN CORPUSCULAR HGB CONC 32.3 g/dl (32-36); MEAN PLATELET VOLUME 9.6 fL (7.4-10.4); PLATELET COUNT 318 K/uL (130-400); RED BLOOD COUNT 4.56 M/uL (4.2-5.4); WHITE BLOOD COUNT 12.33 K/uL (4.8-10.8)
[2017-02-22 08:57] LABS: BUN/CREATININE RATIO 10.3 (10-20); CALCIUM 9.1 mg/dl (8.5-10.1); CREATININE 1.3 mg/dl (0.60-1.20)
[2017-02-22] MEDS ORDERED: LISINOPRIL 10 MG TAB PO SCH (09:00)
[2017-02-22] MEDS: PANTOprazole SOD 40 MG TAB PO SCH (09:00)
[2017-02-22] MEDS: ASPIRIN 81 MG ECTAB PO SCH ×2 (09:02→21:26)
[2017-02-22] MEDS: TRAMADOL HCL 50 MG TAB PO PRN ×4 (09:02→23:24)
[2017-02-22] MEDS: MULTIVITAMIN TAB PO SCH (09:02)
[2017-02-22] MEDS: FERROUS GLUCONATE 324 MG TAB PO SCH ×3 (09:02→18:30)
[2017-02-22] MEDS: DOCUSATE SODIUM 100 MG CAP PO SCH ×2 (09:03→21:26)
[2017-02-22] MEDS: BusPIRone 15 MG TAB PO SCH ×2 (09:04→21:26)
[2017-02-22] MEDS: FLUOXETINE HCL 20 MG CAP PO SCH (09:04)
[2017-02-22 11:28] VITALS: BP 125/73; PULSE 60; TEMP 36.6; O2SAT 94
--- NOTE | 2017-02-22 12:15 | Anesthesiology Progress Note ---
Anesthesia Post Op Note Date & Time Feb 22, 2017 at 12:14 Vital Signs Pain Intensity: 4.0 Vital Signs Past 12 Hours Date Time Temp Pulse Resp B/P (MAP) Pulse Ox O2 Delivery O2 Flow Rate FiO2 02/22/17 11:28 36.6 60 16 125/73 (90) 94 Room Air 02/22/17 07:15 36.7 58 16 140/78 (98) 96 Room Air 02/22/17 07:00 Room Air 02/22/17 03:08 36.8 53 17 132/79 (96) 95 Room Air Notes Mental Status: alert / awake / arousable, participated in evaluation Pt Amnestic to Procedure: Yes Nausea / Vomiting: adequately controlled Pain: adequately controlled Airway Patency, RR, SpO2: stable & adequate BP & HR: stable & adequate Hydration State: stable & adequate Neuraxial Anesthesia: was administered, sensory block resolved Anesthetic Complications: no major complications apparent
[2017-02-22 15:14] VITALS: BP 116/73; PULSE 60; TEMP 37; O2SAT 96
--- NOTE | 2017-02-22 16:57 | Hospitalist Progress Note ---
Hospitalist Progress Note Date of Service Feb 22, 2017. Subjective Pt evaluation today including: conversation w/ patient, conversation w/ family PO Intake: tolerating reg diet Voiding: no voiding problems Pt feeling very well. Pain is controlled, no N/V, no abd pain but with some bloating, no BM yet, is making good urine. No CP, no SOB, no headache All Other Systems: Reviewed and Negative Objective Vital Signs Date Time Temp Pulse Resp B/P (MAP) Pulse Ox O2 Delivery O2 Flow Rate FiO2 02/22/17 15:14 37.0 60 16 116/73 (87) 96 Room Air 02/22/17 11:28 36.6 60 16 125/73 (90) 94 Room Air 02/22/17 07:15 36.7 58 16 140/78 (98) 96 Room Air 02/22/17 07:00 Room Air 02/22/17 03:08 36.8 53 17 132/79 (96) 95 Room Air 02/21/17 23:30 Room Air 02/21/17 22:47 36.8 58 16 148/82 (104) 93 Room Air 02/21/17 19:46 36.8 67 17 129/75 (93) 94 Room Air Physical Exam General Appearance: WD/WN, no apparent distress Eyes: normal inspection, sclerae normal ENT: hearing grossly normal Neck: trachea midline Respiratory/Chest: lungs clear, normal breath sounds, no respiratory distress, no accessory muscle use Cardiovascular: regular rate, rhythm, no edema, no gallop, no murmur Abdomen: normal bowel sounds, non tender, soft, no organomegaly Extremities: + pertinent finding (left knee in EVETTE wrap and with 2+ DP pulses bilat, no edema right leg, no calf tenderness right leg, left knee not unwrapped ) Neurologic/Psychiatric: alert, normal mood/affect, oriented x 3 Skin: normal color, warm/dry, no rash Laboratory Results Last 24 Hours Test 02/22/17 07:58 White Blood Count 12.33 K/uL Red Blood Count 4.56 M/uL Hemoglobin 13.1 g/dL Hematocrit 40.5 % Mean Corpuscular Volume 88.8 fL Mean Corpuscular Hemoglobin 28.7 pg Mean Corpuscular Hemoglobin Concent 32.3 g/dl RDW Standard Deviation 43.4 fL RDW Coefficient of Variation 13.4 % Platelet Count 318 K/uL Mean Platelet Volume 9.6 fL Sodium Level 141 mmol/L Potassium Level 4.0 mmol/L Chloride Level 108 mmol/L Carbon Dioxide Level 21 mmol/L Anion Gap 12.0 mmol/L Blood Urea Nitrogen 13 mg/dl Creatinine 1.30 mg/dl Est Creatinine Clear Calc Drug Dose 49.7 ml/min Estimated GFR () 49.5 Estimated GFR (Non- 42.7 BUN/Creatinine Ratio 10.3 Random Glucose 116 mg/dl Calcium Level 9.1 mg/dl Assessment and Plan Ms. Friedman is a 66 y/o female with PMHx of HTN, HLD, GERD, Anxiety, IBS/ Constipation, and OA who is S/P L TKA on 02/21. 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
[2017-02-22] MEDS: TOPIRAMATE 25 MG TAB PO SCH (21:27)
[2017-02-22] MEDS: SIMVASTATIN 20 MG TAB PO SCH (21:27)
[2017-02-22] MEDS: SENNA 8.6 MG TAB PO SCH (21:27)
[2017-02-22 22:46] VITALS: BP 134/78; PULSE 59; TEMP 36.8; O2SAT 98
[2017-02-23] MEDS ORDERED: LORAZEPAM 1 MG TAB PO STA (00:45)
[2017-02-23] MEDS ORDERED: LORAZEPAM 1 MG TAB ONE (00:48)
[2017-02-23] MEDS: ACETAMINOPHEN 500 MG TAB PO SCH ×3 (05:42→20:57)
[2017-02-23] MEDS: LINACLOTIDE 72 MCG PO SCH (05:43)
[2017-02-23] MEDS: TRAMADOL HCL 50 MG TAB PO PRN ×4 (05:43→23:35)
[2017-02-23 05:58] VITALS: BP 131/79; PULSE 64; TEMP 36.8; O2SAT 96
[2017-02-23 06:02] LABS: BASO % 0.3 %; BASO ABS # 0.03 K/uL (0-0.2); COMPLETE YES; EOS % 0.5 %; HEMATOCRIT 36.3 % (37-47); IG% 0.1 %; LYMPH % 22.3 %; LYMPH ABS # 2.09 K/uL (1.2-3.4); MEAN CELL VOLUME 89.6 fL (80-100); MEAN CORPUSCULAR HEMOGLOBIN 29.1 pg (25-34); MEAN CORPUSCULAR HGB CONC 32.5 g/dl (32-36); MEAN PLATELET VOLUME 9.8 fL (7.4-10.4); MONO % 9.9 %; NEUT % 66.9 %; PLATELET COUNT 241 K/uL (130-400); RED BLOOD COUNT 4.05 M/uL (4.2-5.4); WHITE BLOOD COUNT 9.39 K/uL (4.8-10.8)
[2017-02-23 06:37] LABS: BUN/CREATININE RATIO 18.7 (10-20); CALCIUM 8.1 mg/dl (8.5-10.1); CREATININE 1.1 mg/dl (0.60-1.20); POTASSIUM 3.9 mmol/L (3.5-5.1)
[2017-02-23 07:04] VITALS: BP 134/79; PULSE 65; TEMP 36.7; O2SAT 95
--- NOTE | 2017-02-23 07:36 | Orthopedic Progress Note ---
Orthopedic Progress Note Date of Service Feb 23, 2017. Subjective Post OP Day: 2 Reports: feeling well, pain controlled w PO medications, Denies: complaints, chest pain, SOB, nausea / vomiting, light headedness, calf pain Objective calves soft nontender, N/V intact, capillary refill less than 2 sec., dressing C /D/I, A&O x3, toes mobile silverlon in tact Date Time Temp Pulse Resp B/P (MAP) Pulse Ox O2 Delivery O2 Flow Rate FiO2 02/23/17 07:04 36.7 65 18 134/79 (97) 95 Room Air 02/23/17 05:58 36.8 64 16 131/79 (96) 96 Room Air 02/22/17 22:46 36.8 59 19 134/78 (96) 98 Room Air 02/22/17 19:25 Room Air 02/22/17 15:14 37.0 60 16 116/73 (87) 96 Room Air 02/22/17 11:28 36.6 60 16 125/73 (90) 94 Room Air Laboratory Results 24 Hours: Test 02/22/17 07:58 02/23/17 05:24 Hematocrit 40.5 % 36.3 % Hemoglobin 13.1 g/dL 11.8 g/dL White Blood Count 9.39 K/uL Red Blood Count 4.05 M/uL Mean Corpuscular Volume 89.6 fL Mean Corpuscular Hemoglobin 29.1 pg Mean Corpuscular Hemoglobin Concent 32.5 g/dl Platelet Count 241 K/uL Mean Platelet Volume 9.8 fL Neutrophils (%) (Auto) 66.9 % Lymphocytes (%) (Auto) 22.3 % Monocytes (%) (Auto) 9.9 % Eosinophils (%) (Auto) 0.5 % Basophils (%) (Auto) 0.3 % Neutrophils # (Auto) 6.28 K/uL Lymphocytes # (Auto) 2.09 K/uL Monocytes # (Auto) 0.93 K/uL Eosinophils # (Auto) 0.05 K/uL Basophils # (Auto) 0.03 K/uL Assessment & Plan Assessment: POD #2, Left TKA Plan: PT/ OT DVT proph- ASA D/C planning, Home w OPPT today As per medicine. Inhouse Planning Pain Management: Ultram, Morphine, PO Tylenol, Oxy IR DVT Prophylaxis: TEDs, SCDs, ASA Discharge Planning Discharge Planning: home with oppt DVT Prophylaxis: TEDs, ASA Therapy: Physical Therapy, Occupational Therapy
[2017-02-23] MEDS ORDERED: ACET-24 PO (07:39)
[2017-02-23] MEDS ORDERED: ONDA8TAB6 PO (07:39)
[2017-02-23] MEDS ORDERED: RXC5 PO (07:39)
[2017-02-23] MEDS ORDERED: ASPEC81 PO (07:39)
--- NOTE | 2017-02-23 07:40 | Discharge Instructions ---
Discharge Instructions Date of Service Feb 23, 2017. Admission Reason for Admission: Left Knee Degenerative Joint Disease Discharge Discharge Diagnosis / Problem: Left TKA Discharge Goals Goal(s): Improve function Activity Recommendations Activity Limitations: as noted below . Instructions / Follow-Up Instructions / Follow-Up ACTIVITY RECOMMENDATIONS: SELF CARE INSTRUCTIONS AFTER TOTAL KNEE REPLACEMENT A. You may need to continue a physical therapy program after discharge from the hospital. There are several options available to you. Your doctor will assist you in selecting the best one for you. 1. An out-patient facility 2 to 3 times a week for therapy or home therapy. 2. Continue working on all exercises taught to you in the hospital. Your goals should be to increase bending of your knee to 90 degrees and beyond and to fully straighten your knee. B. You may progress at your own pace from walking with a walker or crutches to a cane; then to no assistive devices. C. Make walking a part of your daily routine. Be up as much as comfortable with rest periods throughout the day. Rest with leg elevation is very important. Use the ice wrap frequently for the first 3-4 weeks. D. There are no restrictions on activities. You may ride in a car, shop, participate in insurance account representative and all social activities. E. Wear the long elastic stockings (RITA hose) 20 hours a day for 2 weeks after surgery. They can be removed several times a day for laundering and for a bath. F. You may shower, no tub baths until cleared by your doctor. SPECIAL CARE INSTRUCTIONS: VERY IMPORTANT TO READ AND REVIEW A. There are a few signs you need to watch for after you are home. Call [facility] if you notice any of the followin. Increased severe knee pain. Some pain is expected especially when you exercise. 2. Increased swelling in your leg or knee; pain or swelling of the calf muscle in either lower leg. 3. Any fluid drainage from the incision. 4. Shortness of breath or chest pain. B. Please call [facility] at if you have any concerns or questions about your operation or recovery. The doctor or his nurse will return your call promptly. C. You must take antibiotics before dental work, bladder, bowel or other surgery. Your doctor will provide you with a permanent care to carry describing this precaution. IMPORTANT: * REMEMBER TO TAKE ASPIRIN, 81 MG, TWICE DAILY FOR 4 WEEKS UNLESS OTHERWISE DIRECTED. THIS IS YOUR BLOOD THINNER. * HIGH RISK PATIENTS MAY BE PRESCRIBED A STRONGER BLOOD THINNER. THIS WILL BE PROVIDED AT DISCHARGE. * CALL IF INCREASED PAIN, REDNESS, DRAINAGE OR FEVER GREATER THAT 101. * WEAR RITA HOSE 20 HOURS PER DAY FOR 2 WEEKS. * YOU MAY HAVE A LARGE BAND-AID LIKE DRESSING (SILVERON). THIS WILL REMAIN ON YOUR INCISION FOR 7 DAYS, THEN CAN BE REMOVED. IF INCISION IS LEAKING THROUGH DRESSING, CALL THE OFFICE . FOLLOW UP VISIT: If appointment is not already scheduled: Please call [facility] to make a follow-up appointment for 2 weeks after your surgery at . Current Hospital Diet Patient's current hospital diet: Regular Diet Discharge Diet Recommended Diet: Regular Diet Procedures Procedures Performed: Left Total Knee Arthroplasty, Cemented Pending Studies Studies pending at discharge: no Laboratory Results Hemoglobin A1c Test 01/23/17 15:52 Range/Units Estimated Average Glucose 108 mg/dl Hemoglobin A1c 5.4 4.5-5.6 % Medical Emergencies . Who to Call and When: Medical Emergencies: If at any time you feel your situation is an emergency, please call 911 immediately. . Non-Emergent Contact Non-Emergency issues call your: Primary Care Provider . "Provider Documentation" section prepared by Marky Boles. . VTE Core Measure Inpt VTE Proph given/why not?: Other Anticoagulation (asa), T.E.D. Stockings, SCD's [place] Drug Monitoring Program Search Results: patient reviewed within database, no issues identified
[2017-02-23] MEDS: FERROUS GLUCONATE 324 MG TAB PO SCH ×3 (08:30→17:45)
[2017-02-23] MEDS: PANTOprazole SOD 40 MG TAB PO SCH (09:00)
[2017-02-23] MEDS: BusPIRone 15 MG TAB PO SCH ×2 (09:20→20:56)
[2017-02-23] MEDS: DOCUSATE SODIUM 100 MG CAP PO SCH ×2 (09:20→20:56)
[2017-02-23] MEDS: ASPIRIN 81 MG ECTAB PO SCH ×2 (09:21→20:56)
[2017-02-23] MEDS: MULTIVITAMIN TAB PO SCH (09:21)
[2017-02-23] MEDS: FLUOXETINE HCL 20 MG CAP PO SCH (09:22)
[2017-02-23] MEDS: OXYCODONE HCL IR 5 MG TAB (IMMEDIATE RELEASE) PO PRN (09:23)
[2017-02-23] MEDS: LISINOPRIL 10 MG TAB PO SCH (09:23)
--- NOTE | 2017-02-23 12:35 | Hospitalist Progress Note ---
Hospitalist Progress Note Date of Service Feb 23, 2017. Subjective Pt evaluation today including: conversation w/ patient Pt had a lot of pain in knee all night, then after drain puled this AM, she got up and felt lightheaded and nauseated. Now still with knee pain lying in bed but nausea improved. She's not sure she will be able to go home today. Thinks all pain related so hopeful if pain better controlled later she will feel better. Denies COX/CP/SOB/Abd pain. No BM yet and just took MOM. All Other Systems: Reviewed and Negative Objective Vital Signs Date Time Temp Pulse Resp B/P (MAP) Pulse Ox O2 Delivery O2 Flow Rate FiO2 02/23/17 09:39 Room Air 02/23/17 07:04 36.7 65 18 134/79 (97) 95 Room Air 02/23/17 05:58 36.8 64 16 131/79 (96) 96 Room Air 02/22/17 22:46 36.8 59 19 134/78 (96) 98 Room Air 02/22/17 19:25 Room Air 02/22/17 15:14 37.0 60 16 116/73 (87) 96 Room Air Physical Exam General Appearance: WD/WN, no apparent distress Eyes: normal inspection, sclerae normal ENT: hearing grossly normal Neck: trachea midline Respiratory/Chest: lungs clear, normal breath sounds, no respiratory distress, no accessory muscle use Cardiovascular: regular rate, rhythm, no edema, no gallop, no murmur Abdomen: normal bowel sounds, non tender, soft, no organomegaly Extremities: no pedal edema, no calf tenderness, + pertinent finding (left knee with dressing in palce) Neurologic/Psychiatric: alert, normal mood/affect, oriented x 3 Skin: normal color, warm/dry, no rash Laboratory Results Last 24 Hours Test 02/23/17 05:24 White Blood Count 9.39 K/uL Red Blood Count 4.05 M/uL Hemoglobin 11.8 g/dL Hematocrit 36.3 % Mean Corpuscular Volume 89.6 fL Mean Corpuscular Hemoglobin 29.1 pg Mean Corpuscular Hemoglobin Concent 32.5 g/dl Platelet Count 241 K/uL Mean Platelet Volume 9.8 fL Neutrophils (%) (Auto) 66.9 % Lymphocytes (%) (Auto) 22.3 % Monocytes (%) (Auto) 9.9 % Eosinophils (%) (Auto) 0.5 % Basophils (%) (Auto) 0.3 % Neutrophils # (Auto) 6.28 K/uL Lymphocytes # (Auto) 2.09 K/uL Monocytes # (Auto) 0.93 K/uL Eosinophils # (Auto) 0.05 K/uL Basophils # (Auto) 0.03 K/uL RDW Standard Deviation 44.2 fL RDW Coefficient of Variation 13.5 % Immature Granulocyte % (Auto) 0.1 % Immature Granulocyte # (Auto) 0.01 K/uL Sodium Level 141 mmol/L Potassium Level 3.9 mmol/L Chloride Level 107 mmol/L Carbon Dioxide Level 27 mmol/L Anion Gap 7.0 mmol/L Blood Urea Nitrogen 21 mg/dl Creatinine 1.10 mg/dl Est Creatinine Clear Calc Drug Dose 58.8 ml/min Estimated GFR () 60.6 Estimated GFR (Non- 52.3 BUN/Creatinine Ratio 18.7 Random Glucose 85 mg/dl Calcium Level 8.1 mg/dl Assessment and Plan Ms. Friedman is a 66 y/o female with PMHx of HTN, HLD, GERD, Anxiety, IBS/ Constipation, and OA who is S/P L TKA on 02/21. S/P L TKA on 02/21: having some post-op pain causing nausea, lightheaded. Hgb only slight drop to 11.8, BPs normal - Pain management, IVF, PT/OT, DVT prophylaxis per primary - DVT prophylaxis - ASA 81 mg BID -plan for home today if nausea and pain improved later HTN: BPs acceptable, managing director atlas down to 1.1 from 1.3 today -ok to restart Lisinopril 10 mg daily -IV Hydralazine PRN HLD: no issues - Simvastatin 20 mg daily Anxiety: no issues - Buspar 30 mg BID -continue Topamax 25 qhs IBS-C-no BM yet since surgery -brought in Linzess from home -MOM today Proph-ASA 81mg bid, SCDs Dispo- to home later today if nausea and pain improved
[2017-02-23 15:09] VITALS: BP 147/82; PULSE 77; TEMP 37; O2SAT 98
[2017-02-23] MEDS: TOPIRAMATE 25 MG TAB PO SCH (20:55)
[2017-02-23] MEDS: SIMVASTATIN 20 MG TAB PO SCH (20:56)
[2017-02-23] MEDS: SENNA 8.6 MG TAB PO SCH (20:56)
[2017-02-23 22:53] VITALS: BP 126/79; PULSE 67; TEMP 36.9; O2SAT 95
[2017-02-24] MEDS: TRAMADOL HCL 50 MG TAB PO PRN ×3 (04:04→12:10)
[2017-02-24] MEDS: ACETAMINOPHEN 500 MG TAB PO SCH (05:53)
[2017-02-24] MEDS: LINACLOTIDE 72 MCG PO SCH (06:49)
[2017-02-24 06:53] VITALS: BP 122/75; PULSE 82; TEMP 36.9; O2SAT 97
--- NOTE | 2017-02-24 07:33 | Orthopedic Progress Note ---
Orthopedic Progress Note Date of Service Feb 24, 2017. Subjective Post OP Day: 3 Reports: feeling well, pain controlled w PO medications, Denies: complaints, chest pain, SOB, nausea / vomiting, light headedness, calf pain Additional Notes: States N/V improved this am, feels as though its the narcotics, is doing well on tramadol at this point. Objective calves soft nontender, N/V intact, capillary refill less than 2 sec., dressing C /D/I, A&O x3, toes mobile Date Time Temp Pulse Resp B/P (MAP) Pulse Ox O2 Delivery O2 Flow Rate FiO2 02/24/17 06:53 36.9 82 18 122/75 (91) 97 Room Air 02/23/17 23:30 Room Air 02/23/17 22:53 36.9 67 16 126/79 (95) 95 Room Air 02/23/17 20:30 Room Air 02/23/17 15:09 37.0 77 18 147/82 (103) 98 Room Air 02/23/17 09:39 Room Air Assessment & Plan Assessment: POD #3, Left TKA Plan: PT/ OT DVT proph- ASA D/C planning, Home w OPPT today As per medicine. Inhouse Planning Pain Management: Ultram, Morphine, PO Tylenol, Oxy IR DVT Prophylaxis: TEDs, SCDs, ASA Discharge Planning Discharge Planning: home with oppt Pain Management: Ultram, PO Tylenol DVT Prophylaxis: TEDs, ASA Therapy: Physical Therapy, Occupational Therapy
[2017-02-24] MEDS ORDERED: ULT50X PO (07:34)
[2017-02-24] MEDS: FERROUS GLUCONATE 324 MG TAB PO SCH ×2 (08:30→12:15)
--- NOTE | 2017-02-24 08:41 | Hospitalist Progress Note ---
Hospitalist Progress Note Date of Service Feb 24, 2017. Subjective Pt evaluation today including: conversation w/ patient PO Intake: eating breakfast and tolerating Voiding: no voiding problems Feeling much better today, no nausea, pain in knee is controlled but achy. No CP /SOB. No BM yet.Feels like oxycodone was causing nausea All Other Systems: Reviewed and Negative Objective Vital Signs Date Time Temp Pulse Resp B/P (MAP) Pulse Ox O2 Delivery O2 Flow Rate FiO2 02/24/17 08:06 Room Air 02/24/17 06:53 36.9 82 18 122/75 (91) 97 Room Air 02/23/17 23:30 Room Air 02/23/17 22:53 36.9 67 16 126/79 (95) 95 Room Air 02/23/17 20:30 Room Air 02/23/17 15:09 37.0 77 18 147/82 (103) 98 Room Air 02/23/17 09:39 Room Air Physical Exam General Appearance: WD/WN, no apparent distress Eyes: normal inspection, sclerae normal ENT: hearing grossly normal Neck: trachea midline Respiratory/Chest: lungs clear, normal breath sounds, no respiratory distress, no accessory muscle use Cardiovascular: regular rate, rhythm, no edema, no gallop, no murmur Extremities: no pedal edema, no calf tenderness, + pertinent finding (left knee dressing c/d/i) Neurologic/Psychiatric: alert, normal mood/affect, oriented x 3 Skin: normal color, warm/dry, no rash Assessment and Plan Ms. Friedman is a 66 y/o female with PMHx of HTN, HLD, GERD, Anxiety, IBS/ Constipation, and OA who is S/P L TKA on 02/21. S/P L TKA on 02/21: having some post-op pain causing nausea, lightheaded. Hgb only slight drop to 11.8, BPs normal - Pain management, IVF, PT/OT, DVT prophylaxis per primary - DVT prophylaxis - ASA 81 mg BID -plan for home today now that nausea and pain improved HTN: BPs acceptable, ux developer down to 1.1 from 1.3 after surgery -continue Lisinopril 10 mg daily HLD: no issues - Simvastatin 20 mg daily Anxiety: no issues - Buspar 30 mg BID -continue Topamax 25 qhs IBS-C-no BM yet since surgery -brought in Linzess from home -MOM -ambulation, prune juice recommended Proph-ASA 81mg bid, SCDs Dispo- to home later today
[2017-02-24] MEDS: PANTOprazole SOD 40 MG TAB PO SCH (09:00)
[2017-02-24] MEDS: BusPIRone 15 MG TAB PO SCH (09:30)
[2017-02-24] MEDS: FLUOXETINE HCL 20 MG CAP PO SCH (09:30)
[2017-02-24] MEDS: MULTIVITAMIN TAB PO SCH (09:31)
[2017-02-24] MEDS: LISINOPRIL 10 MG TAB PO SCH (09:31)
[2017-02-24] MEDS: DOCUSATE SODIUM 100 MG CAP PO SCH (09:32)
[2017-02-24] MEDS: ASPIRIN 81 MG ECTAB PO SCH (09:32)
[2017-02-24 12:18] VITALS: BP 122/75; PULSE 82; TEMP 36.9; O2SAT 97
--- NOTE | 2017-02-27 14:18 | Discharge Summary ---
Orthopedic Discharge Summary Admission Date/Reason Feb 21, 2017 at 07:05 Left Knee Degenerative Joint Disease. Discharge Date/Disposition Feb 24, 2017 Home Diagnosis Principal Diagnosis: Left Knee Djd Secondary Diagnoses/Problems: Hypertension, hypercholesterolemia, sleep apnea, anxiety, osteoarthritis, spine problems, acid reflux, obesity, dental issues. Procedure(s) Performed Left TKA Consultations Elvira Colon, Ashok Sylvester M.D. Medication Reconciliation New Medications: Ondansetron Hcl (Zofran) 8 Mg Tab 8 MG PO Q8H PRN for Nausea, #20 TAB Acetaminophen (Sb Non-Aspirin Extra Stre) 500 Mg Tab 1000 MG PO Q8@0600,1400,2200 for 21 Days, #126 TAB Aspirin (Aspirin EC Low Dose) 81 Mg Ectab 81 MG PO BID for 30 Days, #60 Tramadol HCl (Tramadol HCl) 50 Mg Tab 50-100 MG PO Q4H PRN for Pain, #60 TAB Continued Medications: Buspirone Hcl (Buspirone Hcl) 30 Mg Tab 1 TAB PO BID, TAB Fluoxetine (Prozac) 40 Mg Cap 60 MG PO QAM, CAP Krill Oil (Krill Oil Ada-3) 1 Cap Cap 1 CAP PO QPM Linaclotide (Linzess) 72 Mcg Cap 1 CAP PO QAM Lisinopril (Zestril) 10 Mg Tab 10 MG PO QAM, TAB Ranitidine (Zantac) 150 Mg Tab 150 MG PO BID PRN for Indigestion, TAB Simvastatin (Zocor) 20 Mg Tab 20 MG PO QPM, TAB Topiramate (Topamax) 25 Mg Tab 25 MG PO HS, TAB Discontinued Medications: Acetaminophen (Tylenol) 325 Mg Tab 650 MG PO Q8 PRN for Pain, TAB Naproxen (Aleve) 220 Mg Tab 440 MG PO DAILY PRN for Pain, TAB Admission Physical Exam As per Admitting History & Physical. Hospital Course The Patient had an uneventful hospital course. Labs remained stable- lowest hemoglobin recorded: 11.8 . Pain controlled on oral medications. Participated in PT with ambulation distance of 115 feet. ROM of operative knee reached 50 degrees. Drainage output totaled 450 cc prior to discontinuation. Patient did not have a reported bowel movement. Incision remained clean/dry/ intact. DVT prophylaxis with Aspirin EC 81mg BID x 30 days/Jeff stockings. Patient discharged home with Outpatient PT in stable condition. Please refer to daily progress notes for further details. Discharge Instructions Please refer to the electronic Patient Visit Report (Discharge Instructions) for additional information.
== END 2017-02-24 12:50 | disposition home or self-care (01) | DRG 470 ==
LOC: C.ACU 06:31 → C.3E 07:05 → ENRESERV 12:30
PROVIDERS: ADMIT Orthopaedic Surgery Sports Medicine; ATTEND Orthopaedic Surgery Sports Medicine
PROC: 0SRD0J9 Replacement of Left Knee Joint with Synthetic Substitute, Cemented, Open Approach (ICD-10-PCS; principal; 2017-02-21 08:45)
DX: M17.12 Unilateral primary osteoarthritis, left knee (principal); M21.162 Varus deformity, not elsewhere classified, left knee; G89.18 Other acute postprocedural pain; R11.0 Nausea; R42 Dizziness and giddiness; I10 Essential (primary) hypertension; K58.1 Irritable bowel syndrome with constipation; E78.00 Pure hypercholesterolemia, unspecified; K21.9 Gastro-esophageal reflux disease without esophagitis; F41.9 Anxiety disorder, unspecified; F32.9 Major depressive disorder, single episode, unspecified; G47.30 Sleep apnea, unspecified; E66.9 Obesity, unspecified; Z68.34 Body mass index [BMI] 34.0-34.9, adult; Z87.891 Personal history of nicotine dependence; Z79.899 Other long term (current) drug therapy